=== PATIENT | female | born 1970 | race Caucasian/White ===

== ENCOUNTER 2020-05-24 08:32 | Outpatient (CLI) | payer OTHER, SELFPAY ==
--- NOTE | 2020-05-24 10:45 | NEURO_ITS ---
Patient Number: [id number] Impression: # Complains of right lower extremity discomfort and neuropathy. Status post right thigh and tummy tuck surgery. # Decreased amplitude of right posterior tibial nerves response. # Normal needle/EMG exam. # Clinical correlation recommended. Higher involvement cannot be ruled out. Nerve Conduction Studies Anti Sensory Summary Table Stim Site NR Peak (ms) P-T Amp (?V) Site1 Site2 Delta-P (ms) Dist (cm) Lucien (m/s) Left Sup Fibular Anti Sensory (Ant Lat Mall) 14 cm 3.6 12.8 14 cm Ant Lat Mall 3.6 16.0 44 Right Sup Fibular Anti Sensory (Ant Lat Mall) 14 cm 3.9 13.2 14 cm Ant Lat Mall 3.9 16.0 41 Left Sural Anti Sensory (Lat Mall) Calf 4.0 5.9 Calf Lat Mall 4.0 16.0 40 Right Sural Anti Sensory (Lat Mall) Calf 3.9 23.1 Calf Lat Mall 3.9 16.0 41 Motor Summary Table Stim Site NR Onset (ms) O-P Amp (mV) Site1 Site2 Delta-0 (ms) Dist (cm) Lucien (m/s) Left Peroneal Motor (Vastus Med) Ankle 4.1 2.1 Popit Ankle 7.1 35.0 49 Popit 11.2 1.8 Right Peroneal Motor (Vastus Med) Ankle 3.9 1.8 Popit Ankle 7.3 36.0 49 Popit 11.2 1.6 Left Tibial Motor (Abd Villegas Brev) Ankle 4.8 1.4 Knee Ankle 7.4 37.0 50 Knee 12.2 0.6 Right Tibial Motor (Abd Villegas Brev) Ankle 4.5 1.2 Knee Ankle 8.7 41.0 47 Knee 13.2 0.5 F Wave Studies NR F-Lat (ms) L-R F-Lat (ms) Left Peroneal (Mrkrs) (EDB) 50.00 0.29 Right Peroneal (Mrkrs) (EDB) 49.71 0.29 Left Tibial (Mrkrs) (Abd Hallucis) 49.16 0.62 Right Tibial (Mrkrs) (Abd Hallucis) 48.54 0.62 EMG Side Muscle Nerve Root Ins Act Fibs Amp Dur Recrt Comment Right AntTibialis Dp Br Fibular L4-5 Nml Nml Nml Nml Nml Right Gastroc Tibial S1-2 Nml Nml Nml Nml Nml Right Fibularis Long Sup Br Fibular L5-S1 Nml Nml Nml Nml Nml Right Flex Dig Long Tibial L5-S2 Nml Nml Nml Nml Nml Right Ext Dig Brev Dp Br Fibular L5, S1 Nml Nml Nml Nml Nml Left AntTibialis Dp Br Fibular L4-5 Nml Nml Nml Nml Nml Left Gastroc Tibial S1-2 Nml Nml Nml Nml Nml Left Fibularis Long Sup Br Fibular L5-S1 Nml Nml Nml Nml Nml Left Flex Dig Long Tibial L5-S2 Nml Nml Nml Nml Nml Left Ext Dig Brev Dp Br Fibular L5, S1 Nml Nml Nml Nml Nml Right QuadratusFem QuadFemoris L4-5, S1 Nml Nml Nml Nml Nml Left QuadratusFem QuadFemoris L4-5, S1 Nml Nml Nml Nml Nml MTDD
== END 2020-05-24 08:33 | disposition home or self-care (01) ==
PROVIDERS: PCP Psychiatry & Neurology Neurology; Visit Provider Psychiatry & Neurology Neurology
DX: R20.2 Paresthesia of skin (principal)
CPT/HCPCS: 95886; 95910

== ENCOUNTER 2020-12-03 08:58 | Outpatient (CLI) | payer OTHER, SELFPAY ==
--- NOTE | ~2020-12-03 | US_ITS ---
EXAMINATION: US right upper quadrant DATE: 12/03/2020 09:25 INDICATION: Nonalcoholic cirrhosis. TECHNIQUE: Multiple grayscale and Doppler ultrasound images of the abdomen were obtained. COMPARISON: Abdomen ultrasound 07/11/2015 FINDINGS: The pancreas is obscured by bowel gas. There is diffuse hepatic steatosis with focal sparin g in the gallbladder fossa. No liver surface nodularity. There is normal flow in main portal vein. Th e gallbladder is normal in size and contains sludge. No gallstones or gallbladder wall thickening. Th ere was no sonographic Jain sign. The common duct is normal and measures 5 mm. IMPRESSION: 1. Diffuse hepatic steatosis. Reviewed, dictated and finalized at location B. ID GEAR GENERATOR
== END 2020-12-03 08:59 | disposition home or self-care (01) ==
LOC: ANHIMG 09:06
PROVIDERS: Visit Provider Internal Medicine Gastroenterology
DX: K75.81 Nonalcoholic steatohepatitis (NASH) (principal); K74.69 Other cirrhosis of liver
CPT/HCPCS: 76705

== ENCOUNTER 2021-06-12 12:00 | Emergency (ER) | payer OTHER, SELFPAY ==
[2021-06-12 12:11] VITALS: BP 146/81; PULSE 86; RESP 18; TEMP 36.8; O2SAT 99
--- NOTE | 2021-06-12 12:41 | ED.EYEPROB ---
HPI - Eye Problem General Chief complaint: Eye Problems Stated complaint: foreign body right eye Time Seen by Provider: 06/12/21 12:40 Source: patient, RN notes reviewed and old records reviewed Mode of arrival: ambulatory Limitations: no limitations History of Present Illness HPI Narrative: 51 year old female who presents to [facility] care with complaints of discomfort to her right eye since yesterday. Patient report that she is in the process of home renovation and thinks that something flew into her right eye, reports that it feels like something is in the top of her eye. Patient denies any change in her vision states some photophobia, denies any sharp pain in her eye or any purulent drainage from her eye. Patient denies any matting along her eyelids or any acute swelling to eyelids or under her eye. MD chief complaint: eye redness and foreign body Onset (ago): day(s) (day 2 of symptoms) Onset description: sudden Location: right eye Eye Symptoms: redness, pain, foreign body sensation and photophobia Place: home Related Data Allergies Allergy/AdvReac Type Severity Reaction Status Date / Time No Known Allergies Allergy Unverified 06/12/21 12:20 Review of Systems Review of Systems: Narrative: CONSTITUTIONAL: Denies fever, chills, or sweats. EYES: Denies visual changes, redness, some increase tearing and feel of foreign body right eye with photophobia ENT: Denies rhinorrhea, congestion, sore throat, or otalgia. CARDIOVASCULAR: Denies chest pain, palpitations, or edema. RESPIRATORY: Denies cough or dyspnea. GASTROINTESTINAL: Denies abdominal pain, nausea, vomiting, or diarrhea. GENITOURINARY: Denies dysuria or hematuria. SKIN: Denies rash or itching. MUSCULOSKELETAL: Denies back pain, joint pain, or myalgia. NEUROLOGIC: Denies headache, numbness, or weakness. PSYCHIATRIC: Denies anxiety or depression. 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 Non-alcoholic cirrhosis Surgical History Surgical History (Updated 06/17/21 @ 09:11 by Nusrat Tubbs NP) H/O gastric bypass History of breast augmentation Hx of abdominoplasty Family History Family History (Updated 06/17/21 @ 09:13 by Nusrat Tubbs NP) Father Heart disease Diabetes mellitus Mother Heart disease Diabetes mellitus Social History Social History (Updated 06/17/21 @ 09:14 by Nusrat Tubbs NP) Smoking status: Never smoker Alcohol intake: never Substance use: never Living arrangements: with family Gender identity (if verbalized by the patient): Female Comments At time of signature, agree with nursing past medical, surgical, social and family history. There is no relevant family history pertinent to the presenting complaint Exam Narrative: Exam Narrative: GENERAL: Well-appearing, well-nourished, and in no acute distress. HEAD: Normocephalic, atraumatic. EYES: PERRLA and EOMI.eye sclera redness right eye, with foreign body feeling to her right eye with photophobia, denies any visual changes or ay sharp pain to her right eye ENT: Nares clear, no rhinorrhea or epistaxis. Mucous membranes moist. NECK: Supple. no lymphadenopathy CHEST: Clear to auscultation. No respiratory distress.SAO2 99% on room air HEART: Regular rate and rhythm. No murmur heard. Normal peripheral pulses. ABDOMEN: Soft, nontender, nondistended, normal active bowel sounds. EXTREMITIES: Normal range of motion. No edema. SKIN: Warm, dry, no rash. NEURO: No focal deficits. Alert and oriented x3. Course Vital Signs Vital signs: Vital Signs Temperature 36.8 C 06/12/21 12:11 Pulse Rate 86 06/12/21 12:11 Respiratory Rate 18 06/12/21 12:11 Blood Pressure 146/81 H 06/12/21 12:11 Pulse Oximetry 99 06/12/21 12:11 Temperature 36.8 C 06/12/21 12:11 Pulse Rate 86 06/12/21 12
== END 2021-06-12 13:44 | disposition home or self-care (01) ==
PROVIDERS: Emergency Provider Registered Nurse
DX: S05.01XA Injury of conjunctiva and corneal abrasion without foreign body, right eye, initial encounter (principal); X58.XXXA Exposure to other specified factors, initial encounter; K74.60 Unspecified cirrhosis of liver; Z98.84 Bariatric surgery status
CPT/HCPCS: 99213; A9270; G0463

== ENCOUNTER 2022-03-03 07:44 | Outpatient (CLI) | payer OTHER, SELFPAY ==
--- NOTE | ~2022-03-03 | US_ITS ---
EXAMINATION: US right upper quadrant EXAM DATE: 03/03/2022 08:16 INDICATION: Hepatic steatosis. TECHNIQUE: Multiple grayscale and Doppler images of the abdomen right upper quadrant were obtained (rom y a technologist who performed the scan) and subsequently reviewed. Comparison is made to prior exami nation from 12/03/2020. FINDINGS: The pancreatic head and body are normal in appearance. The pancreatic tail is not visualized. The l iver has normal echogenicity and contour. There are no focal liver lesions identified. There is no evidence of intrahepatic biliary duct dilation. Portal venous flow was seen in the hepatopedal, nor mal direction and has normal Doppler waveform. No right-sided hydronephrosis. Common bile duct measures 3-4 mm, which is normal. The gallbladder wall is normal in thickness, with expected amount of distention. No sonographic evidence of pericholecystic fluid. There is no cholel ithiases. Technologist performing exam reports patient did not demonstrate sonographic Jain's sign. Please note that this sign is less reliable in patients who have received pain medication. IMPRESSION: Unremarkable abdominal ultrasound exam. Reviewed, dictated and finalized at location A.
== END 2022-03-03 07:45 | disposition home or self-care (01) ==
PROVIDERS: PCP Internal Medicine Gastroenterology; Visit Provider Internal Medicine Gastroenterology
DX: K76.0 Fatty (change of) liver, not elsewhere classified (principal)
CPT/HCPCS: 76705

== ENCOUNTER 2023-04-01 09:13 | Outpatient (CLI) | payer OTHER, SELFPAY ==
--- NOTE | ~2023-04-01 | US_ITS ---
Limited Abdominal Sonogram: Real-time sonographic imaging of the right upper quadrant was performed. Clinical History: Nonalcoholic steatohepatitis Findings: The liver appears minimally echogenic, with no evidence of mass lesion or bile duct dilata tion. Main portal vein demonstrates normal direction of flow. The gallbladder is well distended, and appears normal with no evidence of gallstone or wall thickening. The common bile duct measures 5 mm. The visualized pancreas, aorta, and IVC are unremarkable. Impression: Possible mild fatty infiltration of liver. Reviewed, dictated and finalized at location M. Impression: Possible mild fatty infiltration of liver.
[2023-04-01 11:21] LABS: Alanine Aminotransferase 31 U/L (6-35); Albumin Level 4.4 g/dL (3.5-5.1); Alkaline Phosphatase 56 U/L (38-126); Aspartate Amino Transferase 32 U/L (14-36); Bilirubin Indirect 0.3 mg/dL (0-1.1); Bilirubin,Total 0.5 mg/dL (0.2-1.3)
== END 2023-04-01 09:14 | disposition home or self-care (01) ==
PROVIDERS: PCP Internal Medicine Gastroenterology; Visit Provider Internal Medicine Gastroenterology
DX: K75.81 Nonalcoholic steatohepatitis (NASH) (principal)
CPT/HCPCS: 36415; 76705; 80076